=== PATIENT | female | born 1975 | race Two or more races ===

== ENCOUNTER 2022-02-21 19:33 | Emergency (ER) | payer OTHER, SELFPAY ==
[2022-02-21 21:36] VITALS: BP 117/45; PULSE 64; RESP 18; TEMP 36.2; O2SAT 100; BMI 23.0
[2022-02-21 22:24] LABS: MANUAL DIFF FLAG NO
[2022-02-21 22:27] LABS: Appearance Urine Clear; Basophils Percent Auto 0.3 % (0-2); Color Urine Yellow; Eosinophils Absolute Auto 0.3 X10*3/uL (0.0-0.4); Eosinophils Percent Auto 2.7 % (0-4); Glucose Urine UA Negative (Negative); Hematocrit 37.6 % (37.0-47.0); Hemoglobin 12.5 g/dl (12.0-16.0); Imm Gran Abs Auto 0.05 X10*3/uL (0.00-0.03); Imm Gran Pct Auto 0.4 % (0.0-0.4); Leukocyte Esterase Urine Trace (Negative); Lymphocytes Absolute Auto 2.3 X10*3/uL (1.2-4.9); Lymphocytes Percent Auto 18.9 % (20-40); Mean Corpuscular HGB Conc 33.2 g/dl (31.0-35.0); Mean Corpuscular Hemoglobin 30.5 pg (27.0-33.0); Mean Corpuscular Volume 91.7 fL (80.0-98.0); Mean Platelet Volume 10.5 fL (9.4-12.3); Monocytes Percent Auto 8.4 % (2-11); Neutrophils Absolute Auto 8.3 x10*3/uL (2.0-8.3); Neutrophils Percent Auto 69.3 % (45-73); Nitrite Urine Negative (Negative); Platelet Count 205 X10*3/uL (160-400); Red Cell Distribution Width 12.4 % (11.0-16.0); UMIC TRIGGER UACC YES; Urine Blood Large (3+) (Negative); Urine Ketones Negative (Negative); Urine Protein Negative (Neg-Trace); White Blood Count 11.9 X10*3/uL (4.8-10.8)
[2022-02-21 22:28] LABS: UPreg QC Valid YES; Urine Pregnancy POSITIVE (NEGATIVE)
[2022-02-21 22:32] LABS: Bacteria Urine None Seen (None Seen); Hyaline Casts Urine 0-2 /LPF (0-2); RBC Urine >20 /HPF (0-2); Squamous Epithelial Cell Urine 0-2 /HPF (0-2); WBC Urine 0-5 /HPF (0-5)
[2022-02-21 22:43] LABS: Alanine Aminotransferase 28 U/L (0-31); Alkaline Phosphatase 72 U/L (39-117); Anion Gap 12 (12-20); Aspartate Amino Transferase 26 U/L (5-31); Bilirubin Total 0.3 mg/dL (0.0-1.0); Blood Urea Nitrogen 17 mg/dL (9-16); Calcium 9.1 mg/dL (8.4-10.2); Carbon Dioxide 26 mmol/L (22-29); Chloride 104 mmol/L (96-108); Creatinine Clr Calc Pharmacy 61.2; Estimated Glomerular Filt Rate > 60; Glucose Random 88 mg/dL (60-115); Sodium 138 mmol/L (135-145); Total Protein 6.5 g/dL (6.5-8.0)
[2022-02-21 22:49] LABS: HCG Quantitative 10212 mIU/mL
== END 2022-02-22 00:48 | disposition left against medical advice (07) ==
PROVIDERS: Emergency Provider Emergency Medicine
DX: O20.9 Hemorrhage in early pregnancy, unspecified (principal); O09.511 Supervision of elderly primigravida, first trimester; Z3A.11 11 weeks gestation of pregnancy
CPT/HCPCS: 36415; 80053; 81001; 81025; 84702; 85025; 99282; 99283

== ENCOUNTER 2022-02-22 08:19 | Emergency (ER) | payer OTHER, SELFPAY ==
--- NOTE | ~2022-02-22 | US_ITS ---
EXAMINATION: US OBSTETRICAL ULTRASOUND CLINICAL INFORMATION: Bleeding, pain. . COMPARISON: None. LMP: 12/06/2021. Gestational age by maternal dates is 11 weeks 1 day. Estimated date of delivery by maternal dates is 09/12/2022. TECHNIQUE: Ultrasound of the maternal pelvis is performed using transabdominal and transvaginal transducers. Transvaginal imaging is performed due to inadequate visualization transabdominally. FINDINGS: There is no intrauterine identified. The endometrium measures 0.9 cm. No gestational sac. Multiple uterine fibroids are identified. For instance at the uterine fundus there is a complex fibroid measuring up to 5 cm with an internal cystic area. There are additional 2.8 cm and 2.4 cm fibroids. There is a left uterine body 3.9 cm fibroid. The right ovary is not seen. No adnexal mass. The left maternal ovary measures 2.9 x 2.4 x 2.4 cm. 1.5 cm corpus luteum noted. No adnexal mass. No maternal pelvic ascites. US/US OB pelvic and transvaginal IMPRESSION: No intrauterine identified. No ectopic seen. Multiple uterine fibroids.
[2022-02-22 09:07] VITALS: BP 115/55; PULSE 61; RESP 18; TEMP 36.8; O2SAT 100; BMI 23.0
--- NOTE | 2022-02-22 10:30 | ED_ITS ---
HPI - General Chief complaint: Vaginal Bleeding Stated complaint: 11 Weeks Bleeding Pain Time Seen by Provider: 02/22/22 10:06 Source: patient and contracting analyst (Maarti-[place] Portguese) Mode of arrival: ambulatory Limitations: language barrier History of Present Illness HPI Narrative: 46 yo female healthy here with lower abdominal pain /vaginal bleeding for 2 days. Patient tells me she was in the emergency room yesterday but was not seen by provider she left prior to being seen. She thinks she is about 11 weeks . Her last menstrual cycle was December 07. She did a home test that was positive. She has not had an ultrasound to confirm IUP for any care. She is . She reports lower abdominal cramping and vaginal bleeding since yesterday. Today she used 3 pads. Related Data Previous Rx's Medication Instructions Recorded oxycodone 5 mg tablet 5 mg PO Q6H PRN pain #8 tabs 02/22/22 Allergies Allergy/AdvReac Type Severity Reaction Status Date / Time No Known Allergies Allergy Verified 02/21/22 21:42 Review of Systems Review of Systems: Yes all other systems are reviewed and are negative Constitutional: Constitutional: Reports no additional constitutional complaints, Denies body ache(s), Denies chills, Denies fever(s), Denies headache(s) and Denies weakness Eyes: Eyes: Reports no additional eye complaints and Denies change in vision ENT: Reports system reviewed and no additional complaints, except as documented, Denies dizziness, Denies headache(s), Denies nasal congestion, Denies nasal discharge and Denies neck pain Cardiovascular: Cardiovascular: Reports no additional cardiovascular complaints, Denies chest pain, Denies leg edema and Denies dyspnea Respiratory: Respiratory: Reports no additional respiratory complaints, Denies cough and Denies dyspnea Gastrointestinal: Gastrointestinal: Reports no additional gastrointestinal complaints, Reports abdominal pain, Denies diarrhea, Denies nausea and Denies vomiting Genitourinary: Genitourinary: Reports no additional female genitourinary complaints, Reports abnormal vaginal bleeding, Reports pelvic pain and Denies urinary incontinence Musculoskeletal: Musculoskeletal: Reports no additional musculoskeletal complaints, Denies back pain, Denies arthralgias, Denies joint swelling, Denies neck pain, Denies numbness and Denies tingling Integumentary/Breasts: Skin/Breast: Reports system reviewed and no additional complaints, except as docu and Denies rash Neurologic: Reports system reviewed and no additional complaints, except as documented, Denies Abnormal speech present, Denies dizziness, Denies headache(s), Denies numbness, Denies tingling and Denies weakness PMFSH Past Medical History Attestation statement: The following information was validated with the patient. Source: old records reviewed and nursing notes reviewed Physical Exam Vital Signs: Vital Signs: Last Vital Signs Temp 98.2 F 02/22/22 09:07 Pulse 78 02/22/22 13:45 Resp 16 02/22/22 13:45 BP 138/78 02/22/22 13:45 Pulse Ox 100 02/22/22 13:45 O2 Del Method 02/22/22 13:45 BMI result Body Mass Index 23.0 Const: General: cooperative, healthy appearing, comfortable and no acute distress Orientation/consciousness: patient oriented x3 Limitations: no limitations HEENT: Head: Yes normal to inspection Ears: hearing grossly normal bilaterally General nose exam: Normal external nose present Face and sinus: Yes normal facial exam Mouth: Normal oral and palatal mucosa present Throat: Yes posterior oropharynx normal Eyes: General: appearance normal, both eyes and all related structures Pupils: Equal, round and reactive pupils present Neck: Neck: Yes normal visual inspection Chest: Chest palpation & inspection: normal inspection of the chest Resp: Effort & Inspection: normal respiratory effort Auscultation: clear to auscultation bilaterally Cardio: Rate: regular rate Rhythm: regular rhythm Peripheral pulses: Peripheral pulses 2+ throughout GI: Inspection: Yes normal to inspection Palpation (GI): Soft to palpation and Tenderness to palpation present (GI) (mild lower AP ttp-no rebound or guarding) Auscultation: normal bowel sounds : Other: LENI RN spectrograph operator As soon as the speculum was inserted there were several large amounts of tissue that was expelled from the uterus into the vagina. These were evacuated manually. Bleeding is controlled and improved much after manual evacuation Back/Spine/Pelvis: Thoracic/Lumbar Spine: thoracic and lumbar spine normal to inspection Skin: General skin exam: no rashes or lesions noted Neuro: General: patient oriented x3, no focal motor deficits and normal sensation to monofilament Cranial nerves: Yes Equal, round and reactive pupils present Cognition (Neuro): normal cognition Speech: No Abnormal speech present Gait exam (Neuro): Normal gait present Motor exam (neuro): 5/5 motor strength present throughout Extrem: General: Yes normal to inspection Course Course Course Narrative: Pelvic ultrasound shows no intrauterine . Patient had a beta quant yesterday which was [id number]. Today it is 6391. Likely miscarriage. Discussed case with Dr. Amarilis Christine as patient has no OB here. She will follow-up with him. Reviewed worrisome signs and symptoms with the Nigerian contracting analyst. Comfortable discharge home. MDM - OB/Uterine Contractions MDM Narrative Medical decision making narrative: 46-year-old female who believes she is about 11 weeks here with abdominal pain and vaginal bleeding for 2 days. Vitals are stable. Abdomen some mild tenderness to lower quadrants. No rebound or guarding. Will need labs, UA, pelvic ultrasound she has not had ultrasound to confirm IUP and pelvic exam Consider spontaneous miscarriage,ectopic Medical Records Attestation: I reviewed the patient's medical records. Lab Data Attestation: I reviewed the patient's lab results. Result diagrams: 02/22/22 11:08 02/22/22 11:08 Labs: Lab Results 02/22/22 02/22/22 02/22/22 Range/Units 11:08 11:08 11:08 WBC 17.2 H (4.8-10.8) X10*3/uL RBC 4.60 (4.20-5.50) X10*6/uL Hgb 13.9 (12.0-16.0) g/dl Hct 41.8 (37.0-47.0) % MCV 90.9 (80.0-98.0) fL MCH 30.2 (27.0-33.0) pg MCHC 33.3 (31.0-35.0) g/dl RDW 12.4 (11.0-16.0) % Plt Count 224 (160-400) X10*3/uL MPV 10.7 (9.4-12.3) fL Immature Gran % (Auto) 0.4 (0.0-0.4) % Neut % (Auto) 86.0 H (45-73) % Lymph % (Auto) 7.8 L (20-40) % Angelina % (Auto) 5.5 (2-11) % Eos % (Auto) 0.1 (0-4) % Baso % (Auto) 0.2 (0-2) % Lymph # (Auto) 1.4 (1.2-4.9) X10*3/uL Angelina # (Auto) 1.0 (0.1-1.2) X10*3/uL Eos # (Auto) 0.0 (0.0-0.4) X10*3/uL Baso # (Auto) 0.0 (0.0-0.2) X10*3/uL Abs Immat Gran (auto) 0.07 H (0.00-0.03) X10*3/uL Absolute Neuts (auto) 14.8 H (2.0-8.3) x10*3/uL Absolute Nucleated RBC 0.000 (0.0-0.012) X10*3/uL Nucleated RBC % (auto) 0.0 (0.0-0.2) /100WBC Sodium 140 (135-145) mmol/L Potassium 4.2 (3.3-5.1) mmol/L Chloride 104 (96-108) mmol/L Carbon Dioxide 25 (22-29) mmol/L Anion Gap 15 (12-20) BUN 13 (9-16) mg/dL Creatinine 0.79 (0.5-1.4) mg/dL Estim Creat Clear Calc 73.5 Estimated GFR > 60 Random Glucose 79 (60-115) mg/dL Calcium 9.8 D (8.4-10.2) mg/dL Total Bilirubin 0.6 (0.0-1.0) mg/dL Direct Bilirubin 0.3 (0.0-0.5) mg/dL AST 26 (5-31) U/L ALT 29 (0-31) U/L Alkaline Phosphatase 75 (39-117) U/L Total Protein 7.6 (6.5-8.0) g/dL Albumin 4.5 (3.5-5.0) g/dL Beta HCG, Quant 6391 mIU/mL Chlam trachomat DNA PCR (Not Detect.) N.gonorrhoeae DNA (PCR) (Not Detect.) Blood Type O Positive 02/22/22 Range/Units 11:46 WBC (4.8-10.8) X10*3/uL RBC (4.20-5.50) X10*6/uL Hgb (12.0-16.0) g/dl Hct (37.0-47.0) % MCV (80.0-98.0) fL MCH (27.0-33.0) pg MCHC (31.0-35.0) g/dl RDW (11.0-16.0) % Plt Count (160-400) X10*3/uL MPV (9.4-12.3) fL Immature Gran % (Auto) (0.0-0.4) % Neut % (Auto) (45-73) % Lymph % (Auto) (20-40) % Angelina % (Auto) (2-11) % Eos % (Auto) (0-4) % Baso % (Auto) (0-2) % Lymph # (Auto) (1.2-4.9) X10*3/uL Angelina # (Auto) (0.1-1.2) X10*3/uL Eos # (Auto) (0.0-0.4) X10*3/uL Baso # (Auto) (0.0-0.2) X10*3/uL Abs Immat Gran (auto) (0.00-0.03) X10*3/uL Absolute Neuts (auto) (2.0-8.3) x10*3/uL Absolute Nucleated RBC (0.0-0.012) X10*3/uL Nucleated RBC % (auto) (0.0-0.2) /100WBC Sodium (135-145) mmol/L Potassium (3.3-5.1) mmol/L Chloride (96-108) mmol/L Carbon Dioxide (22-29) mmol/L Anion Gap (12-20) BUN (9-16) mg/dL Creatinine (0.5-1.4) mg/dL Estim Creat Clear Calc Estimated GFR Random Glucose (60-115) mg/dL Calcium (8.4-10.2) mg/dL Total Bilirubin (0.0-1.0) mg/dL Direct Bilirubin (0.0-0.5) mg/dL AST (5-31) U/L ALT (0-31) U/L Alkaline Phosphatase (39-117) U/L Total Protein (6.5-8.0) g/dL Albumin (3.5-5.0) g/dL Beta HCG, Quant mIU/mL Chlam trachomat DNA PCR NOT DETECTED (Not Detect.) N.gonorrhoeae DNA (PCR) NOT DETECTED (Not Detect.) Blood Type Imaging Data pelvic US: Attestation: I personally reviewed and interpreted this imaging study as follows: Radiologist's impression: [address] [address] Ultrasound Report Signed Patient: Socorro Leal MR#: [id number] : 1975 Acct:[id number] Age/Sex: 46 / F ADM Date: 02/22/22 Loc: HO.ED Attending Dr: Ordering Physician: Ema Lin NP Date of Service: 02/22/22 Procedure(s): US OB pelvic and transvaginal Accession Number(s): [id number] cc: Ema Lin NP~ EXAMINATION:? US OBSTETRICAL ULTRASOUND CLINICAL INFORMATION:? Bleeding, pain. . COMPARISON:? None.? LMP: 12/06/2021. Gestational age by maternal dates is 11 weeks 1 day. Estimated date of delivery by maternal dates is 09/12/2022. TECHNIQUE: Ultrasound of the maternal pelvis is performed using transabdominal and transvaginal transducers. Transvaginal imaging is performed due to inadequate visualization transabdominally.? ? FINDINGS: There is no intrauterine identified. The endometrium measures 0.9 cm. No gestational sac. Multiple uterine fibroids are identified. For instance at the uterine fundus there is a complex fibroid measuring up to 5 cm with an internal cystic area. There are additional 2.8 cm and 2.4 cm fibroids. There is a left uterine body 3.9 cm fibroid. The right ovary is not seen. No adnexal mass. The left maternal ovary measures 2.9 x 2.4 x 2.4 cm.? 1.5 cm corpus luteum noted. No adnexal mass. No maternal pelvic ascites. US/US OB pelvic and transvaginal IMPRESSION: No intrauterine identified. No ectopic seen. ? Multiple uterine fibroids. Discharge Plan Discharge Clinical Impression: Missed Patient Disposition: Home, Self-Care Instructions: Miscarriage (ED) Additional Instructions: O escrit?odalys de obstetr?sunil ligar? para voc? na pr?xima semana. Retorno por piora da memo, sang[place], febre, v?dave. [place] motrin ou tylenol para memo, conforme necess?odalys. Calor para o abd?men. Prescriptions: New oxycodone 5 mg tablet 5 mg PO Q6H PRN (Reason: pain) Qty: 8 0RF Rx Instructions: Partial Fill upon patient request. Referrals: Matthew Olmos MD [Physician] - 5 days Interventions: ED Discharge Assessment Last Done: 02/22/22 14:10 Discharge Date/Time: 02/22/22 14:10
[2022-02-22 11:12] VITALS: BP 113/68; PULSE 68; RESP 16; O2SAT 100
[2022-02-22 11:14] LABS: MANUAL DIFF FLAG NO
[2022-02-22 11:16] LABS: Basophils Percent Auto 0.2 % (0-2); Eosinophils Percent Auto 0.1 % (0-4); Hematocrit 41.8 % (37.0-47.0); Hemoglobin 13.9 g/dl (12.0-16.0); Imm Gran Abs Auto 0.07 X10*3/uL (0.00-0.03); Imm Gran Pct Auto 0.4 % (0.0-0.4); Lymphocytes Absolute Auto 1.4 X10*3/uL (1.2-4.9); Lymphocytes Percent Auto 7.8 % (20-40); Mean Corpuscular HGB Conc 33.3 g/dl (31.0-35.0); Mean Corpuscular Hemoglobin 30.2 pg (27.0-33.0); Mean Corpuscular Volume 90.9 fL (80.0-98.0); Mean Platelet Volume 10.7 fL (9.4-12.3); Monocytes Percent Auto 5.5 % (2-11); Neutrophils Absolute Auto 14.8 x10*3/uL (2.0-8.3); Platelet Count 224 X10*3/uL (160-400); Red Cell Distribution Width 12.4 % (11.0-16.0); White Blood Count 17.2 X10*3/uL (4.8-10.8)
[2022-02-22 11:30] LABS: Alanine Aminotransferase 29 U/L (0-31); Albumin Level 4.5 g/dL (3.5-5.0); Alkaline Phosphatase 75 U/L (39-117); Anion Gap 15 (12-20); Aspartate Amino Transferase 26 U/L (5-31); Bilirubin Direct 0.3 mg/dL (0.0-0.5); Bilirubin Total 0.6 mg/dL (0.0-1.0); Blood Urea Nitrogen 13 mg/dL (9-16); Calcium 9.8 mg/dL (8.4-10.2); Carbon Dioxide 25 mmol/L (22-29); Chloride 104 mmol/L (96-108); Creatinine Clr Calc Pharmacy 73.5; Estimated Glomerular Filt Rate > 60; Glucose Random 79 mg/dL (60-115); Potassium 4.2 mmol/L (3.3-5.1); Sodium 140 mmol/L (135-145); Total Protein 7.6 g/dL (6.5-8.0)
[2022-02-22 11:36] LABS: HCG Quantitative 6391 mIU/mL
[2022-02-22 13:34] LABS: CT PCR NOT DETECTED (Not Detect.); NG PCR NOT DETECTED (Not Detect.)
[2022-02-22 13:45] VITALS: BP 138/78; PULSE 78; RESP 16; O2SAT 100
--- NOTE | 2022-02-22 13:58 | PM.GYNCN ---
FLOWER STRIPPER - CN: HPI Data of Consult Consult date: 02/22/22 Primary Care Provider: None Physician Consult Narrative Narrative: I was consulted on Socroro Sow who is a 46 year old female who presented emergency room with lower abdominal cramping and vaginal bleeding of 2 days duration.? The patient presented to the emergency room yesterday but was not seen by provider she left prior to being seen.? LMP on December 07 making her by to date at 11 weeks of gestation.? No previous pelvic ultrasound to confirm IUP was done and no care started yet.? She is .? The patient used 3 pads today. In the emergency room the patient passed large amount of clots and tissues, and since then vaginal bleeding has resolved markedly. HCG done yesterday was 10,212 dropped to 673 a 91 today blood type is O-positive. H&H today's 13.9/41.8. cc:: CC: DIRECTOR CHILD ABUSE THERAPY - Review of Systems Review of Systems ROS Unobtainable: All systems reviewed & are unremarkable except as noted in HPI and below Cardiovascular: Denies Palpatations, Loss of consciousness or Chest pain Respiratory: Denies Cough, Wheezing or Shortness of breath Musculoskeletal: Denies Low back pain Gastrointestinal: Denies Heartburn, Constipation, Diarrhea, Nausea or Vomiting Genitourinary: Denies Pain with urination, Burning with urination or Urinary frequency Neurological: Denies Migranes Psychological: Denies Depression OB PMFSH Social History Social History Advance Directives: No Patient : Yes Meds Allergies Allergy/AdvReac Type Severity Reaction Status Date / Time No Known Allergies Allergy Verified 02/21/22 21:42 FLOWER STRIPPER Physical Exam Vitals Vital signs: Temp Pulse Resp BP Pulse Ox O2 Del Method 98.2 F 78 16 138/78 100 02/22/22 09:07 02/22/22 13:45 02/22/22 13:45 02/22/22 13:45 02/22/22 13:45 02/22/22 13:45 BMI result Body Mass Index 23.0 Constitutional General Appearance: Healthy appearing, Well-nourished and Well-developed Psychiatric Mood and Affect: active and alert, normal mood and normal affect Skin Appearance: No rashes and No lesions Lungs Respiratory Effort: No intercostal retractions Auscultation: Clear to auscultation Cardiovascular Auscultation: RRR Abdomen Auscultation/Inspection/Palpation: Normal bowel sounds, Soft, Non-distended and No tenderness Additional Comments: Abdominal exam reported by Johanna Solano NP: Soft nontender Initial pelvic exam showed large amount of blood and tissues which were removed since then the bleeding stopped repeat pelvic exam showed no evidence of bleeding FLOWER STRIPPER - Results Labs CBC & Chem 7: 02/22/22 11:08 02/22/22 11:08 Labs: Short CBC 02/22/22 Range/Units 11:08 WBC 17.2 H (4.8-10.8) X10*3/uL Hgb 13.9 (12.0-16.0) g/dl Hct 41.8 (37.0-47.0) % Plt Count 224 (160-400) X10*3/uL BMP 02/22/22 11:08 Sodium 140 Potassium 4.2 Chloride 104 Carbon Dioxide 25 BUN 13 Creatinine 0.79 Calcium 9.8 D Liver Function 02/22/22 Range/Units 11:08 Total Bilirubin 0.6 (0.0-1.0) mg/dL Direct Bilirubin 0.3 (0.0-0.5) mg/dL AST 26 (5-31) U/L ALT 29 (0-31) U/L Alkaline Phosphatase 75 (39-117) U/L Albumin 4.5 (3.5-5.0) g/dL Imaging US - abdomen: Radiologist's impression: ITS Impressions Pelvic/Transvag US 02/22/22 12:39 IMPRESSION: No intrauterine identified. No ectopic seen. Multiple uterine fibroids. Assessment and Plan (1) Complete : Status: Acute Plan Since the patient's symptoms vaginal bleeding has resolved, the clinical diagnosis is pointing to hours complete . Recommended to Ema Lin NP the following: Incomplete and ectopic warnings to be given to patient, she is to come back to emergency room in case of pelvic pain and/ or vaginal bleeding, temperature above 100.4, nausea and vomiting, otherwise follow-up in the office a few days. I spent a total of 20 minutes reviewing the chart, communicating with the ER provider and documenting in the medical record
[2022-02-22 14:21] LABS: Appearance Urine Clear; Color Urine Yellow; Glucose Urine UA Negative (Negative); Leukocyte Esterase Urine Negative (Negative); Nitrite Urine Negative (Negative); PH 8.5 (5.0-9.0); Specific Gravity - Urine <= 1.005 (1.005-1.025); UMIC TRIGGER UACC YES; Urine Blood Moderate (2+) (Negative); Urine Ketones Negative (Negative); Urine Protein Negative (Neg-Trace)
[2022-02-22 14:24] LABS: UPreg QC Valid YES; Urine Pregnancy POSITIVE (NEGATIVE)
[2022-02-22 14:33] LABS: Bacteria Urine None Seen (None Seen); Hyaline Casts Urine 0-2 /LPF (0-2); Squamous Epithelial Cell Urine 0-2 /HPF (0-2); WBC Urine 0-5 /HPF (0-5)
[2022-02-23 11:14] LABS: BV Int Neg Control Negative (Negative); BV Int Pos Control Positive (Positive)
== END 2022-02-22 14:10 | disposition home or self-care (01) ==
PROVIDERS: Nurse Practitioner Family; Emergency Provider Emergency Medicine
DX: O02.1 Missed abortion (principal); O46.91 Antepartum hemorrhage, unspecified, first trimester; Z3A.11 11 weeks gestation of pregnancy
CPT/HCPCS: 36415; 76801; 76817; 80048; 80076; 81001; 81025; 84702; 85025; 86900; 86901; 87480; 87491; 87510; 87591; 87660; 99284

== ENCOUNTER 2022-03-01 08:11 | Outpatient (REF) | payer OTHER, SELFPAY ==
[2022-03-01 09:40] LABS: HCG Quantitative 285 mIU/mL
== END 2022-03-01 08:12 | disposition home or self-care (01) ==
LOC: HO.LAB 08:11
PROVIDERS: Visit Provider Obstetrics & Gynecology
DX: O03.9 Complete or unspecified spontaneous abortion without complication (principal); D21.9 Benign neoplasm of connective and other soft tissue, unspecified; Z30.09 Encounter for other general counseling and advice on contraception
CPT/HCPCS: 36415; 84702; 99202

== ENCOUNTER 2022-03-08 08:39 | Outpatient (REF) | payer OTHER, SELFPAY ==
[2022-03-08 09:57] LABS: HCG Quantitative 43 mIU/mL
== END 2022-03-08 08:40 | disposition home or self-care (01) ==
LOC: HO.LAB 08:39
PROVIDERS: Visit Provider Obstetrics & Gynecology
DX: O03.9 Complete or unspecified spontaneous abortion without complication (principal)
CPT/HCPCS: 36415; 84702

== ENCOUNTER 2022-03-20 16:10 | Outpatient (REF) | payer OTHER, SELFPAY ==
[2022-03-20 16:55] LABS: HCG Quantitative 8 mIU/mL
== END 2022-03-20 16:11 | disposition home or self-care (01) ==
LOC: HO.LAB 16:10
PROVIDERS: Visit Provider Obstetrics & Gynecology
DX: O03.9 Complete or unspecified spontaneous abortion without complication (principal)
CPT/HCPCS: 36415; 84702

== ENCOUNTER → 2022-03-22 08:08 | Outpatient (BNVA) | payer OTHER, SELFPAY | PROVIDERS: Visit Provider Obstetrics & Gynecology | DX: O03.9 Complete or unspecified spontaneous abortion without complication (principal); Z30.09 Encounter for other general counseling and advice on contraception | CPT/HCPCS: 81025; 99212 ==